=== PATIENT | male | born 1945 | race Caucasian/White ===

== ENCOUNTER → 2017-04-10 | Outpatient (CLI) | payer MEDICARE, BC | LOC: COL.RAD 12:51 | DX: K57.32 Diverticulitis of large intestine without perforation or abscess without bleeding (principal) | CPT/HCPCS: Q9967 ==

== ENCOUNTER 2020-11-18 13:16 | Outpatient (RCR) | payer MEDICARE, BC | END 2020-11-18 13:30 | disposition home or self-care (01) | LOC: COL.CR 13:16 | DX: Z48.812 Encounter for surgical aftercare following surgery on the circulatory system (principal); Z95.2 Presence of prosthetic heart valve ==

== ENCOUNTER 2020-11-26 06:35 | Day surgery (SDC) | payer MEDICARE, BC ==
[~2020-11-26] VITALS: Ht 185.4 cm; Wt 38.7 kg
[2020-11-26] MEDS ORDERED: TOPROL XL 25MG25 MG PO (08:12)
[2020-11-26] MEDS ORDERED: NORVASC 5MG5 MG/TAB PO (08:13)
[2020-11-26] MEDS ORDERED: LIPITOR 40MG TA40 MG PO (08:14)
[2020-11-26 08:23] VITALS: BP 111/76; PULSE 70; TEMP 97.6
[2020-11-26 09:00] VITALS: BP 105/79; PULSE 67; TEMP 97.5
--- NOTE | 2020-11-26 09:00 | NUR ---
PATIENT BROUGHT BACK TO [facility] VIA CART. AMBULATED TO CHAIR WITHOUT DIFFICULTY. PLACED ON MONITORS, VITAL SIGNS STABLE. PATIENT IS ALERT AND ORIENTED. REPORT RECIEVED FROM VERITO CORTES. AT BEDSIDE TO DRIVE PATIENT HOME. DR. WOODWARD AT BEDSIDE TO SPEAK WITH FAMILY. PATIENT REQUESTS JUICE AND MUFFIN. WARM BLANKET PROVIDED, WILL CONTINUE TO MONITOR.
[2020-11-26 09:15] VITALS: BP 132/84; PULSE 68
--- NOTE | 2020-11-26 09:15 | NUR ---
PATIENT VITAL SIGNS STABLE. TOLERATED FOOD AND DRINK WITHOUT DIFFICULTY. WILL MONITOR.
[2020-11-26 09:30] VITALS: BP 123/71; PULSE 58
--- NOTE | 2020-11-26 09:30 | NUR ---
PATIENT STATES HE IS FEELING WELL AND WOULD LIKE TO GO HOME AT THIS TIME. VITAL SIGNS STABLE. IV REMOVED, INTACT. DISCHARGE INSTRUCTIONS REVIEWED WITH PATIENT AND . ALL QUESTIONS ANSWERED. PATIENT TO GET DRESSED AT THIS TIME.
--- NOTE | 2020-11-26 09:45 | NUR ---
PATIENT BROUGHT DOWN TO LOBBY VIA WHEEL CHAIR. TO BE DRIVEN HOME BY . ALL BELONGINGS IN HAND.
== END 2020-11-26 09:45 | disposition home or self-care (01) ==
LOC: SDCO 06:35
DX: Z12.11 Encounter for screening for malignant neoplasm of colon (principal); K57.30 Diverticulosis of large intestine without perforation or abscess without bleeding; I97.89 Other postprocedural complications and disorders of the circulatory system, not elsewhere classified; I48.91 Unspecified atrial fibrillation; I10 Essential (primary) hypertension; R25.1 Tremor, unspecified; G89.29 Other chronic pain; M54.9 Dorsalgia, unspecified; G43.909 Migraine, unspecified, not intractable, without status migrainosus; Z98.52 Vasectomy status; Z20.822 Contact with and (suspected) exposure to COVID-19; Z79.82 Long term (current) use of aspirin; Z79.899 Other long term (current) drug therapy; Z80.0 Family history of malignant neoplasm of digestive organs; Z80.42 Family history of malignant neoplasm of prostate
CPT/HCPCS: G0105; J2704

== ENCOUNTER 2021-05-12 15:25 | Outpatient (RCR) | payer SELFPAY ==
[~2021-05-12 15:25] MED LIST: LIPITOR 40MG TA40 MG PO; NORVASC 5MG5 MG/TAB PO; TOPROL XL 25MG25 MG PO
== END 2021-05-20 ==
LOC: COL.CR
DX: Z29.8 Encounter for other specified prophylactic measures (principal)

== ENCOUNTER 2021-06-25 15:15 | Outpatient (RCR) | payer SELFPAY | END 2021-07-20 | LOC: COL.CR | DX: Z29.8 Encounter for other specified prophylactic measures (principal) ==

== ENCOUNTER 2021-08-11 15:33 | Outpatient (RCR) | payer SELFPAY | END 2021-08-19 | LOC: COL.CR | DX: Z29.8 Encounter for other specified prophylactic measures (principal) ==

== ENCOUNTER 2021-08-30 12:55 | Outpatient (RCR) | payer SELFPAY | END 2021-09-19 | LOC: COL.CR | DX: Z29.8 Encounter for other specified prophylactic measures (principal) ==

== ENCOUNTER 2021-09-20 04:13 | Outpatient (RCR) | payer SELFPAY | END 2021-10-20 | LOC: COL.CR | DX: Z29.8 Encounter for other specified prophylactic measures (principal) ==

== ENCOUNTER 2023-08-07 01:51 | Emergency (ER) | payer MEDICARE, BC ==
[~2023-08-07] VITALS: Ht 182.9 cm; Wt 85.9 kg
[2023-08-07 02:11] VITALS: TEMP 98
[2023-08-07] MEDS ORDERED: NS 1,000 ML IV ONE (02:45)
[2023-08-07] MEDS ORDERED: Morphine 4 MG/ML VIAL IV PRN (02:45)
[2023-08-07 02:56] LABS: BASO # 0.1 K/mm3 (0.0-0.2); BASO % 0.6 % (0.0-2.0); EOS # 0.2 K/mm3 (0.0-0.7); EOS % 2.8 % (0.0-4.0); GRAN # 5.2 K/mm3 (1.4-6.5); GRAN % 62.6 % (42.2-75.2); HEMATOCRIT 42.1 % (42.0-52.0); HEMOGLOBIN 14.2 g/dl (13.5-18.0); LYMPH # 1.9 K/mm3 (1.2-3.4); LYMPH % 23.4 % (20.0-51.0); MEAN CELL VOLUME 93 fl (80.0-100.0); MEAN CORPUSCULAR HEMOGLOBIN 31 pg (27-31); MEAN CORPUSCULAR HGB CONC 34 g/dl (33.0-37.0); MEAN PLATELET VOLUME 9.2 fl (7.4-10.4); MONO # 0.8 K/mm3 (0.1-0.6); MONO % 10.1 % (1.7-9.3); PLATELET COUNT 193 K/mm3 (130-400); RED BLOOD COUNT 4.53 M/mm3 (4.20-5.60); REDCELL DISTRIBUTION WIDTH-CV 12.4 % (11.5-14.5)
[2023-08-07 03:50] LABS: ALANINE AMINOTRANSFERASE 28 U/L (0-55); ALBUMIN 3.9 g/dL (3.4-4.8); ALKALINE PHOSPHATASE 61 U/L (40-150); ANION GAP 11 mmol/L (7-16); AST,SGOT 30 U/L (5-34); BLOOD UREA NITROGEN 16 mg/dL (8-26); CALCIUM 9.7 mg/dL (8.4-10.2); CHLORIDE 106 mEq/L (98-107); CREATININE, serum 0.92 mg/dL (0.72-1.25); GLUCOSE 119 mg/dL (70-99); POTASSIUM 3.9 mEq/L (3.5-4.5); SODIUM 138 mEq/L (136-145)
[2023-08-07 03:57] LABS: TROPONIN-I < 0.010 ng/mL (0.00-0.033)
[2023-08-07] MEDS ORDERED: Ondansetron 4 MG/2 ML VIAL IV PRN (04:00)
[2023-08-07] MEDS ORDERED: NS 50 ML IV SCH (04:01)
[2023-08-07] MEDS ORDERED: Iohexol 300 - 100 ML VIAL IV ONE (04:01)
[2023-08-07] MEDS ORDERED: ASPIRIN 81M81 MG/TA2 PO (04:05)
[2023-08-07 04:19] LABS: LIPASE 43 U/L (8-78)
[2023-08-07 05:58] VITALS: BP 138/84; PULSE 53
== END 2023-08-07 05:58 | disposition home or self-care (01) ==
LOC: COL.ER 01:51
PROVIDERS: Personal Emergency Response Attendant
DX: N28.1 Cyst of kidney, acquired (principal); I44.0 Atrioventricular block, first degree
CPT/HCPCS: J2270; J2405; J7030; Q9967

== ENCOUNTER 2023-08-11 17:20 | Inpatient (IN) | payer MEDICARE, BC ==
[~2023-08-11] VITALS: Ht 182.9 cm; Wt 88.4 kg
[~2023-08-11 17:20] MED LIST changes: +ASPIRIN 81M81 MG/TA2 PO
[2023-08-11 18:00] LABS: BASO % 0.2 % (0.0-2.0); EOS % 0.1 % (0.0-4.0); GRAN # 14.4 K/mm3 (1.4-6.5); GRAN % 87.1 % (42.2-75.2); HEMATOCRIT 44.8 % (42.0-52.0); HEMOGLOBIN 14.9 g/dl (13.5-18.0); LYMPH # 0.6 K/mm3 (1.2-3.4); LYMPH % 3.9 % (20.0-51.0); MEAN CELL VOLUME 94 fl (80.0-100.0); MEAN CORPUSCULAR HEMOGLOBIN 31 pg (27-31); MEAN CORPUSCULAR HGB CONC 33 g/dl (33.0-37.0); MEAN PLATELET VOLUME 8.9 fl (7.4-10.4); MONO # 1.4 K/mm3 (0.1-0.6); MONO % 8.2 % (1.7-9.3); PLATELET COUNT 249 K/mm3 (130-400); RED BLOOD COUNT 4.77 M/mm3 (4.20-5.60); REDCELL DISTRIBUTION WIDTH-CV 12.1 % (11.5-14.5)
[2023-08-11] MEDS ORDERED: Ondansetron 4 MG/2 ML VIAL IV ONE (18:00)
[2023-08-11] MEDS ORDERED: Morphine 4 MG/ML VIAL IV ONE ×2 (18:00→20:00)
[2023-08-11 18:26] LABS: ALANINE AMINOTRANSFERASE 18 U/L (0-55); ALBUMIN 3.6 g/dL (3.4-4.8); ALKALINE PHOSPHATASE 72 U/L (40-150); ANION GAP 11 mmol/L (7-16); AST,SGOT 24 U/L (5-34); BLOOD UREA NITROGEN 16 mg/dL (8-26); CALCIUM 10.1 mg/dL (8.4-10.2); CHLORIDE 100 mEq/L (98-107); CREATININE, serum 0.97 mg/dL (0.72-1.25); GLUCOSE 131 mg/dL (70-99); LIPASE 22 U/L (8-78); POTASSIUM 4.1 mEq/L (3.5-4.5); SODIUM 133 mEq/L (136-145); TOTAL PROTEIN 7.7 g/dl (6.2-8.1)
[2023-08-11 19:06] LABS: TROPONIN-I < 0.010 ng/mL (0.00-0.033)
[2023-08-11] MEDS ORDERED: Iohexol 300 - 100 ML VIAL IV ONE (19:12)
[2023-08-11] MEDS ORDERED: NS 100 ML IV SCH (19:13)
[2023-08-11] MEDS ORDERED: NS 1,000 ML IV ONE (20:00)
[2023-08-11 20:01] LABS: URINE APPEARANCE CLEAR (CLEAR/HAZY); URINE BLOOD NEGATIVE (NEGATIVE); URINE COLOR YELLOW (YELLOW); URINE GLUCOSE NEGATIVE (NEGATIVE); URINE KETONE 1+ (NEGATIVE); URINE NITRATE NEGATIVE (NEGATIVE); URINE PROTEIN(semi-quant) 1+ (NEGATIVE)
[2023-08-11 20:04] LABS: COLLECTION METHOD CLEAN CATCH
[2023-08-11] MEDS ORDERED: HYDROmorphone 0.5 MG/0.5 ML SYRINGE IV PRN (20:45)
[2023-08-11] MEDS ORDERED: LR 1,000 ML IV SCH (20:45)
[2023-08-11] MEDS ORDERED: Ondansetron 4 MG/2 ML VIAL IV PRN (20:45)
[2023-08-11 21:00] VITALS: BP_SYST 152
[2023-08-11] MEDS ORDERED: LUTEIN20 M1 PO (22:10)
[2023-08-11 22:21] VITALS: BP 152/78; PULSE 70; TEMP 100.8
--- NOTE | 2023-08-11 22:26 | NUR ---
pt arrived to room 350 from ER at 2200. pt ambulated to bed independently without issue. pt reporting pain 3/10 RLQ pain but states it is bearable without medication at this time. pt ivf running to left ac iv @ 125ml/hr per orders. admission, med rec, and physical assessment complete. pt resting in bed. call light in reach. all needs met at this time.
[2023-08-12] VITALS (18 sets, daily range): BP systolic 99–134; BP diastolic 58–97; PULSE 63–78; TEMP 97.8–99.2
[2023-08-12 06:48] LABS: HEMATOCRIT 38.6 % (42.0-52.0); HEMOGLOBIN 13.2 g/dl (13.5-18.0); MEAN CELL VOLUME 92 fl (80.0-100.0); MEAN CORPUSCULAR HEMOGLOBIN 32 pg (27-31); MEAN CORPUSCULAR HGB CONC 34 g/dl (33.0-37.0); MEAN PLATELET VOLUME 9.2 fl (7.4-10.4); PLATELET COUNT 240 K/mm3 (130-400); RED BLOOD COUNT 4.18 M/mm3 (4.20-5.60); REDCELL DISTRIBUTION WIDTH-CV 12.4 % (11.5-14.5)
[2023-08-12 07:06] LABS: ALBUMIN 2.9 g/dL (3.4-4.8); BILIRUBIN,TOTAL 2.3 mg/dL (0.2-1.2); CALCIUM 8.7 mg/dL (8.4-10.2); CREATININE, serum 0.89 mg/dL (0.72-1.25); POTASSIUM 4.2 mEq/L (3.5-4.5); TOTAL PROTEIN 6.2 g/dl (6.2-8.1)
--- NOTE | 2023-08-12 07:18 | NUR ---
Bedside report received from SOPHIA Thomas. Pt resting in bed with no complaints. Call light within reach.
[2023-08-12 07:50] LABS: BAND 3 % (0-10); LYMPHOCYTE 5 % (20.0-51.0); NEUTROPHILS 89 % (42.0-75.2); PLATELET ESTIMATE NORMAL (NORMAL)
[2023-08-12] MEDS ORDERED: Pantoprazole 40 MG in NS 10 ML IV SCH (09:00)
[2023-08-12] MEDS ORDERED: amLODIPine 5 MG TAB PO SCH (09:00)
[2023-08-12] MEDS ORDERED: Atorvastatin 40 MG TAB PO SCH (09:00)
--- NOTE | 2023-08-12 09:58 | NUR ---
Pt awake in bed visiting with at bedside. Shift assessment completed. VSS. Pt states that there is pain in ABD upon palpitation. BS hypoactive in all quadrants. IVF infusing into LAC with no complications. NPO status maintained. Pt has no request at this time. Call light within reach.
[2023-08-12] MEDS ORDERED: BUPivacaine PF 0.5% w EPI (1:200,000) 10 ML VIAL SQ ONE ×2 (12:01)
--- NOTE | 2023-08-12 13:07 | NUR ---
Data: Patient and accepted Air Conditioning Unit Assembler visit offered during Air Conditioning Unit Assembler rounds. Patient was waiting to be taken to gallbladder surgery. Assessment: Patient and desired prayer for successful surgery. Plan of Care: Air Conditioning Unit Assembler prayed for successful surgery and healing. Both Patient and thanked Air Conditioning Unit Assembler for the prayer. Chaplains will remain available as needed/requested while Patient is admitted to this hospital.
[2023-08-12] MEDS ORDERED: dexAMETHasone 10 MG/ML VIAL ONE (13:09)
[2023-08-12] MEDS ORDERED: Rocuronium 50 MG/5 ML Multi-Dose VIAL ONE (13:09)
[2023-08-12] MEDS ORDERED: fentaNYL 50 MCG/ML 5 ML VIAL ONE (13:09)
[2023-08-12] MEDS ORDERED: Lidocaine PF 2% (20 MG/ML) 5 ML VIAL ONE (13:09)
[2023-08-12] MEDS ORDERED: Ondansetron 4 MG/2 ML VIAL ONE (13:09)
[2023-08-12] MEDS ORDERED: Ondansetron 4 MG/2 ML VIAL IV PRN (13:15)
[2023-08-12] MEDS ORDERED: HYDROmorphone 1 MG/1 ML SYRINGE [PACU/SDC ONLY] IV PRN (13:15)
[2023-08-12] MEDS ORDERED: Meperidine 50 MG/ML 1 ML VIAL IV PRN (13:15)
[2023-08-12] MEDS ORDERED: hydrALAZINE 20 MG/ML 1 ML VIAL IV PRN (13:15)
[2023-08-12] MEDS ORDERED: fentaNYL 50 MCG/ML 1 ML SYRINGE/VIAL [PACU/SDC ONLY] IV PRN (13:15)
--- NOTE | 2023-08-12 14:12 | NUR ---
NICOLE met with patient and Teresa ([phone]) to complete initial assessment for discharge planning. Patient and live in [place] and also in [facility]. Patient sees Dr. Alex as his PCP and uses [facility]. Patient has a walker, cane, crutches and grab bars at home but does not use them. Patient reports being active and independent. Patient states his is DPOA and they can provide a copy for his chart. No discharge need identified at this time. Discharge plan: Home
[2023-08-12] MEDS ORDERED: fentaNYL 50 MCG/ML 2 ML VIAL ONE ×2 (15:10→17:29)
[2023-08-12] MEDS ORDERED: Acetaminophen 325 MG TAB PO PRN (16:00)
[2023-08-12] MEDS ORDERED: LR 1,000 ML IV ONE (16:11)
--- NOTE | 2023-08-12 16:13 | NUR ---
Pt back to surgical floor from OR by bed. Report received from BELT BUCKLE MAKER Alanna. Pt is awake and alert x4. Denies pain/discomfort at this time rating 0/10. ABD incisions CDI covered with bandaids. IVF infusing into LAC with no complications. SCDs in place BLE. Post op vitals stable. Pt has no request at this time. is at bedside. Call light within reach.
--- NOTE | 2023-08-12 19:21 | NUR ---
report received from bebeto khan. pt resting in bed with at bedside. pt continues on post op vitals. vss. call light in reach. all needs met at this time.
--- NOTE | 2023-08-12 19:50 | NUR ---
shift assessment complete, see documentation. pt continues to deny pain. post op vital signs complete and remain wnl. pt ambulated to bathroom independently without issue. call light in reach. all needs met at this time.
[2023-08-13] VITALS (14 sets, daily range): BP systolic 112–147; BP diastolic 69–76; PULSE 57–75; TEMP 97.4–99.2
--- NOTE | 2023-08-13 00:28 | NUR ---
pt reporting abd bloating and 3/10 pain. pt educated about walking to release gas pain. prn tylenol administered per orders.
--- NOTE | 2023-08-13 06:47 | NUR ---
pt reporting 4/10 abd pain and bloating. prn tylenol administered per orders.
[2023-08-13 07:16] LABS: BASO % 0.2 % (0.0-2.0); EOS # 0.1 K/mm3 (0.0-0.7); EOS % 0.8 % (0.0-4.0); GRAN # 9.3 K/mm3 (1.4-6.5); GRAN % 77.2 % (42.2-75.2); HEMOGLOBIN 11.5 g/dl (13.5-18.0); LYMPH # 1.2 K/mm3 (1.2-3.4); MEAN CELL VOLUME 93 fl (80.0-100.0); MEAN CORPUSCULAR HEMOGLOBIN 31 pg (27-31); MEAN CORPUSCULAR HGB CONC 33 g/dl (33.0-37.0); MONO # 1.4 K/mm3 (0.1-0.6); MONO % 11.3 % (1.7-9.3); PLATELET COUNT 204 K/mm3 (130-400); RED BLOOD COUNT 3.73 M/mm3 (4.20-5.60); REDCELL DISTRIBUTION WIDTH-CV 12.5 % (11.5-14.5)
[2023-08-13 07:20] LABS: HEMATOCRIT 34.8 % (42.0-52.0)
[2023-08-13 07:37] LABS: ALBUMIN 2.4 g/dL (3.4-4.8); BILIRUBIN,TOTAL 1.7 mg/dL (0.2-1.2); CREATININE, serum 1.01 mg/dL (0.72-1.25); POTASSIUM 4.1 mEq/L (3.5-4.5); TOTAL PROTEIN 5.8 g/dl (6.2-8.1)
--- NOTE | 2023-08-13 08:10 | NUR ---
Patient sitting up in bed. at bedside. Patient tolerating clear liquid tray, without nausea. Tylenol from prior nurse helped relieve pain. Dr. Ashish cornelius, Plan of care reviewed. Christian madison
--- NOTE | 2023-08-13 11:14 | NUR ---
Patient sitting up in bed, at bedside. Minimal needs, looking forward to a regular lunch. He ambulated halls with & did well. Will monitor
--- NOTE | 2023-08-13 14:07 | NUR ---
Patient resting in bed. He did well with lunch, without nausea. Denies needs.
--- NOTE | 2023-08-13 16:40 | NUR ---
Patient requesting alA cart dinner. He reports lunch was too heavy. Kitchen called they were only willing to bring him ala cart dinner, one time the kitchen report that patient have to have what meal is being served.
--- NOTE | 2023-08-13 18:27 | NUR ---
Patient tolerated dinner tray. rounded this evening & plan of care reviewed. Will report off to night nurse
--- NOTE | 2023-08-13 20:20 | NUR ---
Patient up to shower at this time. PCT wrapped INT.
[2023-08-13] MEDS ORDERED: Atorvastatin 40 MG TAB PO SCH (21:00)
--- NOTE | 2023-08-13 23:55 | NUR ---
Patient resting eyes closed. No s/s of pain or discomfort noted. Will monitor.
[2023-08-14 03:18] VITALS: BP 125/72; PULSE 59; TEMP 98.1
[2023-08-14 03:43] VITALS: BP_SYST 125
--- NOTE | 2023-08-14 05:39 | NUR ---
Patient had an uneventful night. Denied nausea/shortness of breath. VS remained stable. Showered earlier in shift-tolerated well. INT to left AC flushes without difficulty-no s/s of infiltration noted. Lap sites x3-edges well approximated-no drainage noted-no dressing-surgical glue intact. Denies current needs. Call light in reach. Will monitor.
--- NOTE | 2023-08-14 06:51 | NUR ---
Bedside report given to SOPHIA Chapin
[2023-08-14 07:19] LABS: BASO % 0.4 % (0.0-2.0); EOS # 0.2 K/mm3 (0.0-0.7); EOS % 1.8 % (0.0-4.0); GRAN # 7.8 K/mm3 (1.4-6.5); GRAN % 75.4 % (42.2-75.2); HEMATOCRIT 38.1 % (42.0-52.0); HEMOGLOBIN 12.8 g/dl (13.5-18.0); LYMPH # 1.4 K/mm3 (1.2-3.4); LYMPH % 13.5 % (20.0-51.0); MEAN CELL VOLUME 94 fl (80.0-100.0); MEAN CORPUSCULAR HEMOGLOBIN 32 pg (27-31); MEAN CORPUSCULAR HGB CONC 34 g/dl (33.0-37.0); MEAN PLATELET VOLUME 9.1 fl (7.4-10.4); MONO # 0.9 K/mm3 (0.1-0.6); MONO % 8.4 % (1.7-9.3); PLATELET COUNT 257 K/mm3 (130-400); RED BLOOD COUNT 4.04 M/mm3 (4.20-5.60); REDCELL DISTRIBUTION WIDTH-CV 12.5 % (11.5-14.5)
[2023-08-14 07:53] LABS: ALBUMIN 2.8 g/dL (3.4-4.8); BILIRUBIN,TOTAL 1.3 mg/dL (0.2-1.2); CALCIUM 9.6 mg/dL (8.4-10.2); POTASSIUM 3.6 mEq/L (3.5-4.5); TOTAL PROTEIN 6.9 g/dl (6.2-8.1)
[2023-08-14 08:00] VITALS: BP 118/68; PULSE 64; TEMP 98.5
[2023-08-14] MEDS ORDERED: AMOXICILLIN 8751 TAB PO (09:19)
[2023-08-14] MEDS ORDERED: Amoxicillin/Clavulanate K+ 875/125 MG TAB PO SCH (09:30)
--- NOTE | 2023-08-14 10:24 | NUR ---
SHIFT ASSESSMENT COMPLETE. VSS. PATIENT UP BRUSHING TEETH AND CLEANING UP. ALL MORNING MEDS GIVEN PER ORDERS. PATIENT REPORTS NO PAIN AT THSI TIME. PATIENT HAS NO REQUEST OR CONCERNS AT THIS TIME. CALL LIGHT IN REACH.
--- NOTE | 2023-08-14 10:30 | NUR ---
SW attended clinical rounds. Patient stable for discharge. SW met with patient to review Medicare IM form, patient agreeable to discharge and signed form. Original on chart, copy to patient. Discharge plan: Home
[2023-08-14 11:26] VITALS: BP 146/80; PULSE 67; TEMP 98.4
== END 2023-08-14 12:20 | disposition home or self-care (01) | DRG 854 ==
LOC: COL.ER 17:20 → SURG 20:52
PROVIDERS: Nurse Practitioner Family; Physician Assistant; Surgery; ADMIT Internal Medicine
PROC: 0FT44ZZ Resection of Gallbladder, Percutaneous Endoscopic Approach (ICD-10-PCS; principal; 2023-08-12 14:00)
DX: A41.9 Sepsis, unspecified organism (principal); E87.1 Hypo-osmolality and hyponatremia; K80.01 Calculus of gallbladder with acute cholecystitis with obstruction; E87.20 Acidosis, unspecified; I44.0 Atrioventricular block, first degree; E78.5 Hyperlipidemia, unspecified; I10 Essential (primary) hypertension; I48.91 Unspecified atrial fibrillation; R73.9 Hyperglycemia, unspecified; M19.90 Unspecified osteoarthritis, unspecified site; G89.29 Other chronic pain; I73.9 Peripheral vascular disease, unspecified; Z88.8 Allergy status to other drugs, medicaments and biological substances; Z79.82 Long term (current) use of aspirin; Z79.899 Other long term (current) drug therapy; Z86.16 Personal history of COVID-19
CPT/HCPCS: C9113; J0690; J0780; J1100; J2270; J2405; J2543; J2704; J3010; J7030; J7120; Q9967